=== PATIENT | female | born 1990 | race Hispanic/Latino ===

== ENCOUNTER 2020-04-06 07:53 | Outpatient (CLI) | payer MEDICAID ==
--- NOTE | 2020-04-06 08:49 | ULT ---
EXAM: OB ultrasound COMPARISON: None HISTORY: female patient. Evaluate anatomy TECHNIQUE: Multiplanar grayscale and color Doppler transabdominal sonographic images are obtained. FINDINGS: There is a single intrauterine gestation in cephalic presentation. Cardiac Doppler demonstr ates heart tones with a heart rate of 135 beats per minute. The placenta is located anteriorly and fundal without evidence of placenta previa. There is a normal amount of amniotic fluid with an amniotic fluid index of 9 centimeters. The cervical length based on transabdominal imaging measures 4.9 centimeters. biometry measurements: BPD 5.15 cm -- 21 weeks 5 days HC 19.78 cm -- 22 weeks AC 17.66 cm -- 22 weeks 4 days FL 3.67 cm -- 21 weeks 5 days The estimated gestational age by ultrasound is 22 weeks with an JENNIFER on08/10/2020. Gestational age by t he last menstrual period is 22 weeks 4 days. The estimated weight by ultrasound is 477 g (1 pound, 1 ounce). This represents 23 percentile f or weight. A 4 chambered heart is difficult to definitely delineate. The cerebellum, visualized portions of the spine, kidneys, and cord insertion demonstrate a normal sonographic appearance. Urinary bladder is mostly decompressed and not well evaluated. Visualized extremities have a normal sonograph ic appearance. A three-vessel cord is not visualized, but there is flow on either side of the urinary bladder sugges ting a three-vessel cord.. No anomalies are seen. IMPRESSION: 1. Single intrauterine gestation in cephalic presentation with heart tones documented. Estimat ed gestational age by ultrasound is 22 weeks with JENNIFER on 08/10/2020. 2. Estimated weight is 477 g (1 pound, 1 ounce). 3. Amniotic fluid index is 9 centimeters.
== END 2020-04-06 07:54 | disposition home or self-care (01) ==
LOC: BICULT 07:53
PROVIDERS: ATTEND Nurse Practitioner
DX: O09.92 Supervision of high risk pregnancy, unspecified, second trimester (principal); Z3A.22 22 weeks gestation of pregnancy
CPT/HCPCS: 76805

== ENCOUNTER 2020-05-17 17:48 | Emergency (ER) | payer OTHER | END 2020-05-17 20:05 | disposition short-term general hospital (02) | LOC: ERS 17:48 | DX: O26.852 Spotting complicating pregnancy, second trimester (principal); O10.912 Unspecified pre-existing hypertension complicating pregnancy, second trimester; Z3A.26 26 weeks gestation of pregnancy; Z79.82 Long term (current) use of aspirin; Z79.899 Other long term (current) drug therapy | CPT/HCPCS: 99284 ==

== ENCOUNTER 2020-06-16 15:41 | Outpatient (CLI) | payer OTHER | END 2020-06-16 15:42 | disposition home or self-care (01) | LOC: BICULT 15:41 | PROVIDERS: ATTEND Family Medicine | DX: O99.213 Obesity complicating pregnancy, third trimester (principal); Z3A.32 32 weeks gestation of pregnancy | CPT/HCPCS: 76816 ==